=== PATIENT | female | born 1975 | race Caucasian/White ===

== ENCOUNTER → 2021-06-03 20:25 | Outpatient (CLI) | payer OTHER, SELFPAY ==
--- NOTE | 2021-06-04 12:37 | PC.NURSE ---
notified pt of positive covid result at this time
== END ==
PROVIDERS: Visit Provider Nurse Practitioner Family
DX: U07.1 COVID-19 (principal); J02.9 Acute pharyngitis, unspecified
CPT/HCPCS: C9803; U0003; U0005

== ENCOUNTER 2022-01-20 19:49 | Emergency (ER) | payer BC, SELFPAY ==
[2022-01-20 19:53] VITALS: BP 155/110; PULSE 116; RESP 20; TEMP 36.8; O2SAT 98; BMI 50.0
--- NOTE | 2022-01-20 19:58 | HMH.EDUTC ---
[facility] [place] Disposition Clinical Impression: Shingles Qualifiers: Herpes zoster complications: without complications Qualified Code(s): B02.9 - Zoster without complications Disposition: Home, Self-Care Condition on Discharge: Good Instructions: DI for Spider Bites, DI for Shingles, Doxycycline, Mupirocin, Acyclovir Referrals: Lorenzo Navarro MD [Primary Care Provider] - Time of Disposition: 20:04 Medical Decision Making - Reuben Inquiry Pt receiving controlled substance: No Reuben was queried for this patient: No Vital Signs: 01/20/22 19:53 Temperature 98.3 F Temperature Source Oral Pulse Rate [Left Brachial] 116 H Respiratory Rate 20 Blood Pressure [Left Arm] 155/110 H Blood Pressure Mean [Left Arm] 125 Blood Pressure Source [Left Arm] Automatic Cuff Blood Pressure Position [Left Arm] Sitting 02 Sat by Pulse Oximetry 98 Oxygen Delivery Method Room Air Orders (Tests/Meds): ORDERS Category Date Time Status Wound Culture and Gram Stain Stat Micro 01/20/22 19:53 Ordered Medical Decision Narrative: computer went down prior to arrival and patients prescriptions was called to [facility] Doxy 100mg BID x 7 days, Mupirocin TID x 10 days and acyclovir 800mg q5xday x 7 days Culture obtained and sent to lab [facility] [place] HPI - General Stated complaint: rash Time Seen by Provider: 01/20/22 19:58 Mode of Arrival: Ambulatory Source of Information: Patient Limitations: No Limitations Description of Symptoms (Recalled from Triage Doc. by RN): PATIENT C/O RASH TO LEFT LOWER BACK AND POSSIBLE SPIDER BITE TO LEFT COYNE X 2 DAYS, AND POSSIBLE BITE TO LEFT WRIST THAT SHE NOTICED THIS MORNING HEENT Symptoms (Recalled from RN notes): No Resp Symptoms (Recalled from RN notes): No Skin Symptoms (Recalled from RN notes): Yes MS Symptoms (Recalled from RN notes): No Functional Status (Recalled from RN notes): WNL - History of Present Illness Provider Complaint: Patient states that she noticed rash on her left side that has continued to spread and she is pretty sure it is shingles States that she also thinks she was bitten a couple times by a spider once on the left coyne and on the left wrist area States that they are red and draining so she came in - Related Data Home Medications Medication Instructions Recorded Confirmed cetirizine 10 mg capsule 10 mg PO DAILY PRN 06/03/21 06/03/21 duloxetine 60 mg capsule,delayed 60 mg PO DAILY 06/03/21 06/03/21 release insulin lispro protamine-lispro 5 unit SQ DAILY 06/03/21 06/03/21 100 unit/mL (75-25) subcutaneous pen metformin 1,000 mg tablet 1,000 mg PO DAILY 06/03/21 06/03/21 tizanidine 4 mg tablet 4 mg PO HS PRN 06/03/21 06/03/21 Previous Rx's Medication Instructions Recorded benzonatate 200 mg capsule 200 mg PO TID PRN 7 Days #21 cap 06/03/21 ondansetron 8 mg disintegrating 8 mg PO Q8H PRN #30 tab 06/03/21 tablet Allergies Allergy/AdvReac Type Severity Reaction Status Date / Time latex [LATEX] Allergy Unknown Verified 06/03/21 18:35 - Worker's Comp Is this a Worker's Comp case?: No [facility] History - Hepatitis A Screen Attestation statement:: This patient has been screened for Hepatitis A risk factors. I have reviewed the patient's past medical history: Yes Medical History: Reports:: Depression, Diabetes Mellitus Type 1, Diabetes Mellitus Type 2 Laterality Cases: Bilateral: Tonsillectomy Comment: left knee meniscectomy - Social History Smoking Status: Never smoker Alcohol Intake: never Occupational Status: employed - Psychiatric History Pschychiatric History:: Reports:: Depression Family Hx:: Non-contributory ROS Obtained: Yes All systems reviewed & no additional complaints, Yes Systems reviewed as appropriate & no additional complaints - Constitutional Constitutional: Reports system reviewed and no additional complaints, except as docu, Denies body ache, Denies chills, Denies fever(s) - ENT Ears, Nose, Mouth, and Throat: Reports syste
[2022-01-20 20:00] VITALS: BP 155/110; PULSE 116; RESP 20; TEMP 36.8; O2SAT 98
== END 2022-01-20 20:03 | disposition home or self-care (01) ==
PROVIDERS: Emergency Provider Nurse Practitioner; PCP Family Medicine
DX: B02.9 Zoster without complications (principal)
CPT/HCPCS: 87070; 87077; 87186; 87205; 99212; G0463

== ENCOUNTER 2022-12-10 14:07 | Emergency (ER) | payer BC, SELFPAY ==
[2022-12-10 14:08] VITALS: BP 154/100; PULSE 98; RESP 18; TEMP 36.7; O2SAT 99; BMI 42.9
--- NOTE | 2022-12-10 14:22 | PC.NURSE ---
DR WEAVER AT BEDSIDE
--- NOTE | 2022-12-10 14:25 | HMH.EDSKAF ---
Discharge Plan Disposition Patient Disposition: Home, Self-Care Condition: Fair Prescriptions Prescriptions: New hydroxyzine HCl 50 mg tablet 50 mg PO Q8H PRN (Reason: nausea and vomiting) Qty: 30 0RF No Action Zyrtec 10 mg capsule 10 mg PO DAILY PRN insulin lispro protamin-lispro 100 unit/mL (75-25) insulin pen 5 unit SQ DAILY metformin 1,000 mg tablet 1,000 mg PO DAILY duloxetine 60 mg capsule,delayed release(DR/EC) 60 mg PO DAILY tizanidine 4 mg tablet 4 mg PO HS PRN benzonatate 200 mg capsule 200 mg PO TID PRN (Reason: cough) 7 Days Qty: 21 0RF ondansetron 8 mg tablet,disintegrating 8 mg PO Q8H PRN (Reason: nausea ) Qty: 30 0RF Referrals Follow up/Referrals: Chirag Kirkpatrick [Primary Care Provider] - See instructions Activity Restrictions/Add. Instructions Additional Instructions/Restrictions: Follow-up with your primary care doctor in about 2 to 3 days if your symptoms do not improve. I recommend that you follow-up with a guide dog trainer and/or shirt hemmer for further work-up. I suspect that your symptoms are due to a systemic allergic reaction to something you have taken by mouth. Please return to the emergency department immediately if you feel worse in any way. Clinical Impressions Clinical Impression: Allergic reaction Instructions Patient Instructions: DI for General Allergic Reactions Discharge ED Provider: Darryl Amador Skin/Abscess/FB HPI General Chief complaint: Skin/Abscess/Foreign Body Stated complaint: Fever, rash all over body, nausea Time Seen by Provider: 12/10/22 14:20 History of Present Illness HPI narrative: The patient presents to the emergency department complaining of severe pruritus and burning of both palms and feet. This began yesterday. 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 She states that there has been no change in gloves at work. She also denies any recent tick bites. She denies having had a fever recently. She denies any rashes other than in her hands. Related Data Home Medications Medication Instructions Recorded Confirmed cetirizine 10 mg capsule (Zyrtec) 10 mg PO DAILY PRN 06/03/21 06/03/21 duloxetine 60 mg capsule,delayed 60 mg PO DAILY 06/03/21 06/03/21 release insulin lispro protamine-lispro 5 unit SQ DAILY 06/03/21 06/03/21 100 unit/mL (75-25) subcutaneous pen metformin 1,000 mg tablet 1,000 mg PO DAILY 06/03/21 06/03/21 tizanidine 4 mg tablet 4 mg PO HS PRN 06/03/21 06/03/21 Previous Rx's Medication Instructions Recorded benzonatate 200 mg capsule 200 mg PO TID PRN cough 7 days #21 06/03/21 caps ondansetron 8 mg disintegrating 8 mg PO Q8H PRN nausea #30 tabs 06/03/21 tablet hydroxyzine HCl 50 mg tablet 50 mg PO Q8H PRN nausea and 12/10/22 vomiting #30 tabs Allergies Allergy/AdvReac Type Severity Reaction Status Date / Time latex [LATEX] Allergy Unknown Verified 06/03/21 18:35 [facility] Disclaimer: The information contained in this section may have been updated after the patient was seen, as this information can be updated by other users. Social History Smoking Status: Never smoker alcohol intake: never current occupational status: employed Travel in the last 8 weeks: None ROS Obtained: Yes All systems reviewed & no additional complaints except as documented Physical Exam General General appearance: alert Head Head exam: atraumatic Eye Eye exam: Present normal appearance ENT ENT exam: Present normal exam Neck Neck exam: Present normal inspection and full ROM; Absent tenderness or meningismus Chest Chest inspection: Present normal inspection and symmetric chest wall rise; Absent tenderness Respiratory Respiratory exam: Present normal lung sounds bilaterally; Absent respiratory distress or accessory muscle use Cardiovascular Cardiovascular exam: Present regular rate, normal rhythm and normal heart sounds Abdominal
[2022-12-10 14:31] VITALS: BP 157/79; PULSE 96; RESP 18; O2SAT 96
[2022-12-10 14:55] LABS: Basophils % 0.4 % (0.1-2.0); Eosinophils # 0.3 K/mm3 (0.0-0.4); Eosinophils % 3.4 % (0.1-12.0); Hematocrit 44.3 % (37.0-47.0); Hemoglobin 14.5 g/dL (12.2-16.2); Lymphocytes # 1.6 K/mm3 (0.7-4.5); Lymphocytes % 19.9 % (10-50); Mean Corpuscular HGB Conc 32.8 g/dL (31.8-35.4); Mean Corpuscular Hemoglobin 26.1 pg (27.0-31.2); Mean Corpuscular Volume 79.6 fl (81-99); Mean Platelet Volume 8.2 fl (7.4-10.4); Monocytes # 0.4 K/mm3 (0.1-1.0); Monocytes % 4.5 % (1.7-9.3); Neutrophils # 5.7 K/mm3 (1.8-7.8); Neutrophils % 71.8 % (37.0-80.0); Platelet Count 289 K/mm3 (142-424); Red Blood Count 5.57 M/mm3 (4.20-5.40); White Blood Count 7.9 K/mm3 (4.8-10.8)
[2022-12-10 14:59] LABS: Chloride 97 mmol/L (98-107); Potassium 4.2 mmoL/L (3.5-5.1); Sodium 136 mmol/L (136-145)
[2022-12-10 15:00] VITALS: BP 122/63; PULSE 95; RESP 18; O2SAT 97
[2022-12-10 15:01] LABS: Alanine Aminotransferase 33 U/L (12-78); Aspartate Amino Transferase 38 U/L (14-36); Blood Urea Nitrogen 8 mg/dl (7-17); Creatinine Clearance Estimated 119 mL/min (50-200); Estimated Glomerular Filt Rate 132 ml/min (>60); GFR (African American) 159 ML/MIN (>60)
[2022-12-10 15:02] LABS: Albumin Level 4.1 g/dl (3.5-5.0); Albumin/Globulin Ratio 1.1 (1.1-1.8); Alkaline Phosphatase 88 U/L (38-126); Anion Gap 13.2 mEq/L (5-15); Bilirubin,Total 0.2 mg/dl (0.2-1.3); Calcium 9.6 mg/dl (8.4-10.2); Carbon Dioxide 30 mmol/L (22.0-30.0); Globulin 3.6 g/dL (1.3-3.2); Glucose 151 mg/dl (74-100); Total Protein,Serum 7.7 g/dl (6.3-8.2)
--- NOTE | 2022-12-10 15:05 | PC.NURSE ---
PT MEDICATED PER EMAR, NO NEEDS AT THIS TIME
--- NOTE | 2022-12-10 15:23 | PC.NURSE ---
PATIENT GIVEN ICE WATER, SPOUSE AT BEDSIDE, NO OTHER NEEDS AT THIS TIME
--- NOTE | 2022-12-10 15:25 | PC.NURSE ---
PT REPORTS FEELING SOME IMPROVEMENT NO BURNING SENSATION AT THIS TIME
[2022-12-10 15:30] VITALS: BP 129/64; PULSE 87; RESP 18; O2SAT 96
--- NOTE | 2022-12-10 15:40 | PC.NURSE ---
rounded on pt, no needs at this time
--- NOTE | 2022-12-10 16:16 | PC.NURSE ---
DR WEAVER AT BEDSIDE TO REEVALUATE PT
[2022-12-10 16:30] VITALS: BP 118/61; PULSE 89; RESP 18; TEMP 36.8; O2SAT 98
== END 2022-12-10 16:30 | disposition home or self-care (01) ==
PROVIDERS: Emergency Provider Emergency Medicine; PCP Internal Medicine
DX: T78.40XA Allergy, unspecified, initial encounter (principal); L29.9 Pruritus, unspecified
CPT/HCPCS: 80053; 85025; 96372; 96374; 99284; J2405

== ENCOUNTER 2025-05-26 19:14 | Emergency (ER) | payer OTHER, SELFPAY ==
--- OUTSIDE RECORDS SUMMARY | 2025-03-28 13:15 | XMS_ITS | Encounter Summary ---
[facility] Address [address] [place] [address] Care Team Providers Care Alcoholism Worker Name Role Phone Nancy Mendez Primary Care Provider [phone] Reason for Visit * Reason Comments Fibromyalgia Encounter Details Date Type Department Care Team (Late st Contact Info) Description 03/28/2025 2:15 PM EDT Office Visit [facility] RHEUMATOLOGY 330 [facility] [address] [place] [address] Tierney Webster APRN 330 [facility] [address] [place] [address] Fibromyalgia (Primary Dx); High risk medication use; Arthralgia of multiple sites; Hidradenitis suppurativa; Rheumatoid factor positive Social History Tobacco Use Types Packs/Day Years Used Date Smoking Tobacco: Never Passive Smoke Exposure: Past Smokeless Tobacco: Never Tobacco Cessation:Counseling Given: Not Answered Alcohol Use Standard Drinks/Week Comments Never 0 (1 standard drink = 0.6 oz pur e alcohol) Comments Unknown Sex and Gender Information Value Date Recorded Sex Assigned at Female 03/28/2025 12:00 PM EDT Legal Sex Female 11:01 AM EDT Gender Identity Not on file Sexual Orientation Not on file documented as of this encounter Last Filed Vital Signs Vital Sign Reading Time Taken Comments Blood Pressure 130/78 03/28/2025 2:12 PM EDT Pulse 99 03/28/2025 2:12 PM EDT Temperature 36.5 C (97.7 F) 03/28/2025 2:12 PM EDT Respiratory Rate - - Oxygen Saturation - - Inhaled Oxygen Concentration - - Weight 117 kg (258 lb) 03/28/2025 2:12 PM EDT Height 162.6 cm (5' 4 ) 03/28/2025 2:12 PM EDT Body Mass Index 44.29 03/28/2025 2:12 PM EDT documented in this encounter Progress Notes * Tierney Webster APRN - 03/28/2025 2:15 PM EDTAssociated Problem(s): 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 Improved on medication Doing well on duloxetine, pregabalin and tizanidine. Refilled Medications are well tolerated and effective for her chronic pain -Labs ordered for monitoring as below along with urine drug screen on controlled medication She is feeling worse snice Monjauro was stopped and Ozempic was started. She has had uncontrolled glucose and this has also caused more pain. We have encouraged regular low impact aerobic exercise up to 30 minutes per day. If this is unattainable, recommend a graded exercise program starting with 5 minutes of dedicated cardiovascular exercise daily, increasing by 1 minute daily until goal of 30 minutes daily is reached. We have recommended conservative measures to improve sleep Will send in flonase for her allergies. They are worse and PCP has not filled this. Consider referral to sleep medicine for HARLAN screening We recommend avoiding narcotics studies have shown that narcotics can worsen fibromyalgia pain. Counseled on alternative therapies that can help with pain including massage therapy, aquatic therapy, physical therapy, acupuncture, chiropractics, and psychology evaluation Follow-up 6 months * Tierney Webster APRN - 03/28/2025 2:15 PM EDTAssociated Problem(s): High risk medication use Pregabalin Well tolerated and effective No sign of abuse or diversion Discussed risks and benefits of Lyrica including sedation, allergic reaction, withdrawal. Reuben reviewed and appropriate Intermittent urine drug screen for monitoring Controlled medication agreement reviewed and signed 04/06/2024 * Tierney Webster APRN - 03/28/2025 2:15 PM EDTAssociated Problem(s): Arthralgia of multiple sites RF and ANA9 negative 02/2022. No swollen joints/peripheral synovitis to suggest an inflammatory arthritis. Likely fibromyalgia and some OA causing widespread musculoskeletal pain * Tierney Webster APRN - 03/28/2025 2:15 PM EDTAssociated Problem(s): Hidradenitis suppurativa [facility] Prior Humira per Dermatology started July 2019- lost efficacy Prior doxycycline, minocycline, spironolactone, dapsone. Intermittent HS lesions groin. These come and go Has failed doxycycline historically She tried Humira for HS but stopped due to having respiratory side effects with Humira. We tried dapsone for her previously but she reports it made her feel poorly so she stopped this after 2 months Recommend continue follow up with dermatology * Tierney Webster APRN - 03/28/2025 2:15 PM EDTAssociated Problem(s): Rheumatoid factor positive Low titer positive rheumatoid factor 22, negative JD Negative hepatitis panel with Dermatology 02/2022 repeat RF negative, ANA9 negative. Suspect false-positive low titer rheumatoid factor. Repeat rheumatoid factor negative She does not have peripheral joint synovitis or progressive joint deformities. She has had chronic widespread musculoskeletal pain ongoing for years, probably from fibromyalgia and some OA * Tierney Webster APRN - 03/28/2025 2:15 PM EDT Images from the original note were not included. Office Follow Up Date: 03/28/2025 Patient Name: Polly Bullard Date of : 1975 Referring Physician: No ref. provider found Chief Complaint: Chief Complaint Patient presents with Fibromyalgia History of Present Illness: Polly Bullard is a 49 y.o. female here today for follow up on fibromyalgiaand weakly positive rheumatoid factor thought to be false- positive. Repeat RF 02/2022 was negative. Overall she feels her musculoskeletal pain is improved on pregabalin and duloxetine. No longer on celecoxib Still some achy joints and muscles. No swollen joints today. JD comprehensive panel 02/2022 was negative. She has intermittent trouble with hidradenitis lesions particularly in her groin. Follows with Dermatology She discontinued Humira as it stopped working for the hidradenitis and she had some respiratory issues when on it. 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 We prescribed her Dapsone at her visit 02/2022. She took this for 2 months, but it made her feel poorly so she is no longer taking this. Overall she is doing reasonably well recently. Pregabalin at night is helpful. Still some difficulty with sleep and muscle pain at night. Tizanidine is also helpful at night Interim 03/28/2025: Today patient reports feeling worse. She believes this is due to uncontrolled blood sugars with a medicine change. Her GLP 1 was changed. She rates her pain a global score 3/10. She has 1 hour of morning stiffness. She would like refills of pregabalin and tizanidine. We last saw her May 03, 2024. Subjective Review of Systems: Review of Systems Constitutional: Positive for appetite change and fatigue. HENT: Positive for postnasal drip and tinnitus. Musculoskeletal: Positive for arthralgias, back pain and myalgias. Neurological: Positive for tremors. Psychiatric/Behavioral: Positive for depressed mood. All other systems reviewed and are negative. Medications: Current Outpatient Medications: buPROPion XL (WELLBUTRIN XL) 150 MG 24 hr tablet, Take 1 tablet by mouth Every Morning., Disp: , Rfl: DULoxetine (CYMBALTA) 60 MG capsule, Take 1 capsule by mouth Daily., Disp: 90 capsule, Rfl: 2 HumaLOG Mix 75/25 KwikPen (75-25) 100 UNIT/ML suspension pen-injector pen, INJCET 87UNITS EVERY DAY, Disp: , Rfl: levocetirizine (XYZAL) 5 MG tablet, Take 1 tablet by mouth every night at bedtime., Disp: , Rfl: losartan (COZAAR) 25 MG tablet, Take 1 tablet by mouth Daily., Disp: , Rfl: Ozempic, 2 MG/DOSE, 8 MG/3ML solution pen-injector, INJECT 2 MG UNDER THE SKIN ONCE WEEKLY ON THE SAME DAY EACH WEEK, Disp: , Rfl: pregabalin (LYRICA) 150 MG capsule, Take 1 capsule by mouth every night at bedtime., Disp: 90 capsule, Rfl: 1 rosuvastatin (CRESTOR) 5 MG tablet, , Disp: , Rfl: tiZANidine (ZANAFLEX) 4 MG tablet, Take 1 tablet by mouth Every 8 (Eight) Hours As Needed for Muscle Spasms., Disp: 90 tablet, Rfl: 5 fluticasone (FLONASE) 50 MCG/ACT nasal spray, Administer 2 sprays into the nostril(s) as directed by provider Daily., Disp: 16 g, Rfl: 3 Allergies: Allergies Allergen Reactions Latex Unknown - Low Severity I have reviewed and updated the patient's chief complaint, history of present illness, review of systems, past medical history, surgical history, family history, social history, medications and allergy list as appropriate. Objective Vital Signs: Vitals: 03/28/25 1412 BP: 130/78 BP Location: Left arm Patient Position: Sitting Cuff Size: Adult Pulse: 99 Temp: 97.7 ??F (36.5 ??C) Weight: 117 kg (258 lb) Height: 162.6 cm (64 ) PainSc: 3 PainLoc: Generalized Body mass index is 44.29 kg/m??. Physical Exam: Physical Exam MUSCULOSKELETAL: No peripheral synovitis. No dactylitis. No pitting of the nails. She has scattered myofascial tenderness above and below the waist. Complete joint exam was performed including the MCPs, PIPs, DIPs of the hands, wrists, elbows, shoulders, hips, knees and ankles. No soft tissue swelling or tenderness is present except as above. General: The patient is well-developed and well nourished. Cooperative, alert and oriented. Affect is normal. Hydration appears normal. HEENT: Normocephalic and atraumatic. No notable alopecia. Lids and conjunctiva are normal. Pupils are equal and sclera are clear. Oropharynx is clear NECK neck is supple without adenopathy, masses or thyromegaly. CARDIOVASCULAR: Regular rate and rhythm. No murmurs, rubs or gallops LUNGS: Effort is normal. Lungs are clear bilateral ABDOMEN: Not examined EXTREMITIES: Peripheral pulses are intact. No clubbing. SKIN: No rashes. No subcutaneous nodules. No digital ulcers. No sclerodactyly. Positive scarring axilla from prior hidradenitis NEUROLOGIC: Gait is normal. Strength testing is normal. No focal neurologic deficits Results Review: Labs: Lab Results Component Value Date GLUCOSE 127 (H) 04/06/2024 BUN 12 04/06/2024 CREATININE 0.78 04/06/2024 EGFR 92.7 04/06/2024 BCR 15.4 04/06/2024 K 4.1 04/06/2024 CO2 27.0 04/06/2024 CALCIUM 10.0 04/06/2024 ALBUMIN 4.2 04/06/2024 BILITOT 0.3 04/06/2024 AST 59 (H) 04/06/2024 ALT 63 (H) 04/06/2024 Lab Results Component Value Date WBC 15.02 (H) 04/06/2024 HGB 15.2 04/06/2024 HCT 47.8 (H) 04/06/2024 MCV 86.8 04/06/2024 PLT 410 04/06/2024 Lab Results Component Value Date SEDRATE 51 (H) 04/06/2024 No results found for: CRP No results found for: QUANTIFERO , QUANTITB1 , QUANTITB2 , QUANTIFERN , QUANTIFERM , QUANTITBGLDP No results found for: RF No results found for: HEPBSAG , HEPAIGM , HEPBIGMCORE , HEPCVIRUSABY Procedures Assessment / Plan Assessment & Plan 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 Improved on medication Doing well on duloxetine, pregabalin and tizanidine. Refilled Medications are well tolerated and effective for her chronic pain -Labs ordered for monitoring as below along with urine drug screen on controlled medication She is feeling worse snice Monjauro was stopped and Ozempic was started. She has had uncontrolled glucose and this has also caused more pain. We have encouraged regular low impact aerobic exercise up to 30 minutes per day. If this is unattainable, recommend a graded exercise program starting with 5 minutes of dedicated cardiovascular exercise daily, increasing by 1 minute daily until goal of 30 minutes daily is reached. We have recommended conservative measures to improve sleep Will send in flonase for her allergies. They are worse and PCP has not filled this. Consider referral to sleep medicine for HARLAN screening We recommend avoiding narcotics studies have shown that narcotics can worsen fibromyalgia pain. Counseled on alternative therapies that can help with pain including massage therapy, aquatic therapy, physical therapy, acupuncture, chiropractics, and psychology evaluation Follow-up 6 months High risk medication use Pregabalin Well tolerated and effective No sign of abuse or diversion Discussed risks and benefits of Lyrica including sedation, allergic reaction, withdrawal. Reuben reviewed and appropriate Intermittent urine drug screen for monitoring Controlled medication agreement reviewed and signed 04/06/2024 Arthralgia of multiple sites RF and ANA9 negative 02/2022. No swollen joints/peripheral synovitis to suggest an inflammatory arthritis. Likely fibromyalgia and some OA causing widespread musculoskeletal pain Hidradenitis suppurativa [facility] Prior Humira per Dermatology started July 2019- lost efficacy Prior doxycycline, minocycline, spironolactone, dapsone. Intermittent HS lesions groin. These come and go Has failed doxycycline historically She tried Humira for HS but stopped due to having respiratory side effects with Humira. We tried dapsone for her previously but she reports it made her feel poorly so she stopped this after 2 months Recommend continue follow up with dermatology Rheumatoid factor positive Low titer positive rheumatoid factor 22, negative JD Negative hepatitis panel with Dermatology 02/2022 repeat RF negative, ANA9 negative. Suspect false-positive low titer rheumatoid factor. Repeat rheumatoid factor negative She does not have peripheral joint synovitis or progressive joint deformities. She has had chronic widespread musculoskeletal pain ongoing for years, probably from fibromyalgia and some OA Orders Placed This Encounter Procedures ToxAssure Flex 22, Urine - Urine, Random Void Discussed plan of care in detail with the patient today. Patient verbalized understanding and agrees. I confirm accuracy of unchanged data/findings which have been carried forward from previous visit. I have updated appropriately those that have changed. New Medications Ordered This Visit Medications tiZANidine (ZANAFLEX) 4 MG tablet Sig: Take 1 tablet by mouth Every 8 (Eight) Hours As Needed for Muscle Spasms. Dispense: 90 tablet Refill: 5 pregabalin (LYRICA) 150 MG capsule Sig: Take 1 capsule by mouth every night at bedtime. Dispense: 90 capsule Refill: 1 fluticasone (FLONASE) 50 MCG/ACT nasal spray Sig: Administer 2 sprays into the nostril(s) as directed by provider Daily. 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 Tireney Webster APRN [facility] documented in this encounter Plan of Treatment Upcoming Encounters Date Type Department Care Team (Late st Contact Info) Description 09/25/2025 2:00 PM EDT Office Visit [facility] RHEUMATOLOGY [address] [address] Tierney Webster APRN [address] [address] Scheduled Orders Name Type Priority Associated Diagnoses Orde r Schedule ToxAssure Flex 22, Urine - Urine, Random Void Lab Routine High risk medication use Expected: 09/24/2025 (Approximate), Expires: 06/27/2026 documented as of this encounter Visit Diagnoses Diagnosis Fibromyalgia- Primary Unspecified myalgia and myositis High risk medication use Arthralgia of multiple sites Hidradenitis suppurativa Hidradenitis Rheumatoid factor positive Other and unspecified nonspecific immunological findings documented in this encounter Care Teams Alcoholism Worker Relationship Specialty Start Date End Date Nancy Mendez PA [address] [place] [place], [place] [id number] PCP - 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
[2025-05-26] VITALS (10 sets, daily range): BP systolic 140–187; BP diastolic 55–99; PULSE 71–99; RESP 18–20; TEMP 36.5–36.8; O2SAT 95–99; BMI 44.1
--- NOTE | 2025-05-26 19:29 | CT_ITS ---
PROCEDURE INFORMATION: Exam: CT Abdomen And Pelvis With Contrast Exam date and time: 05/26/2025 8:22 PM Age: 49 years old Clinical indication: Abdominal pain; Additional info: Left flank pain, HX of stone TECHNIQUE: Imaging protocol: Computed tomography of the abdomen and pelvis with contrast. Radiation optimization: All CT scans at this facility use at least one of these dose optimization techniques: automated exposure control; mA and/or kV adjustment per patient size (includes targeted exams where dose is matched to clinical indication); or iterative reconstruction. Contrast material: ISOVUE; Contrast volume: 75 ml; Contrast route: IV; COMPARISON: No relevant prior studies available. FINDINGS: Lungs: Lung bases are clear. Esophagus: Circumferential distal esophageal wall thickening. Diaphragm: Moderate hiatal hernia. Liver: Liver is enlarged measuring 18 cm. No liver lesions. Gallbladder and biliary ducts: Cholecystectomy. There is no evidence of biliary ductal dilation. Pancreas: The pancreas is normal. Spleen: The spleen demonstrates punctate calcifications, consistent with remote granulomatous organism exposure. No splenic lesions. Adrenal glands: Adrenal glands are normal in size and morphology. No masses or suspicious nodules. Kidneys and ureters: The kidneys are normal. No hydroureter. Stomach and bowel: Mild constipation. No bowel obstruction or significant bowel wall thickening. Stomach is decompressed and difficult to evaluate. Duodenum is unremarkable. Appendix: A normal appendix is identified. Intraperitoneal space: There is no evidence of free intraperitoneal or pelvic fluid. No intraperitoneal fluid collections. There is no free intraperitoneal air. Vasculature: Mild atherosclerotic calcification of the arterial vasculature. No aortic aneurysm. Portal venous system is patent. Lymph nodes: No concerning adenopathy. Urinary bladder: No urinary bladder wall thickening, large masses, or stones. Reproductive: IUD is present. Reproductive organs are unremarkable as visualized. Bones/joints: Moderate multilevel degenerative changes of the spine. No acute skeletal abnormality or aggressive osseous lesion. Soft tissues: Fat containing umbilical hernia. No acute soft tissue findings. IMPRESSION: 1. Circumferential distal esophageal wall thickening. Could be related to mild esophagitis or sequela of gastroesophageal reflux disease. 2. No nephrolithiasis or acute obstructive uropathy.
--- OUTSIDE RECORDS SUMMARY | 2025-05-26 19:29 | XMS_ITS | Encounter Summary ---
[facility] Address [address] [place] [address] Care Team Providers Care Division Sergeant Name Role Phone Nancy Mendez Primary Care Provider [phone] Encounter Details Date Type Department Care Team (Late st Contact Info) Description 04/02/2025 Results Follow-Up [facility] RHEUMATOLOGY [address] [address] Tierney Webster APRN [address] [address] Social History Tobacco Use Types Packs/Day Years Used Date Smoking Tobacco: Never Passive Smoke Exposure: Past Smokeless Tobacco: Never Alcohol Use Standard Drinks/Week Comments Never 0 (1 standard drink = 0.6 oz pur e alcohol) Comments Unknown Sex and Gender Information Value Date Recorded Sex Assigned at Female 03/28/2025 12:00 PM EDT Legal Sex Female 11:01 AM EDT Gender Identity Not on file Sexual Orientation Not on file documented as of this encounter Plan of Treatment Upcoming Encounters Date Type Department Care Team (Late st Contact Info) Description 09/25/2025 2:00 PM EDT Office Visit [facility] RHEUMATOLOGY 330 [facility] [address] [place] [address] Tierney Webster APRN [address] [phone] documented as of this encounter Visit Diagnoses Not on filedocumented in this encounter Care Teams Division Sergeant Relationship Specialty Start Date End Date Nancy Mendez PA [address] [place] [address] PCP - General Physician Garland Maker 03/29/24 documented as of this encounter
--- OUTSIDE RECORDS SUMMARY | 2025-05-26 19:29 | XMS_ITS | Clinical Summary ---
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 4 Active HumaLOG Mix 75/25 KwikPen (75-25) 100 UNIT/ML suspension pen-injector pen INJCET 87UNITS EVERY DAY Active buPROPion XL (WELLBUTRIN XL) 150 MG 24 hr tablet Take 1 tablet by mouth Every Morning. 4 Active DULoxetine (CYMBALTA) 60 MG capsuleIndicati ons:Fibromyalgi a,High risk medication use Take 1 capsule by mouth Daily. 90 capsule 2 4 Active losartan (COZAAR) 25 MG tablet Take 1 tablet by mouth Daily. 5 Active rosuvastatin (CRESTOR) 5 MG tablet 5 Active Ozempic, 2 MG/DOSE, 8 MG/3ML solution pen-injector INJECT 2 MG UNDER THE SKIN ONCE WEEKLY ON THE SAME DAY EACH WEEK 5 Active tiZANidine (ZANAFLEX) 4 MG tabletIndicatio ns:Fibromyalgia ,High risk medication use Take 1 tablet by mouth Every 8 (Eight) Hours As Needed for Muscle Spasms. 90 tablet 5 5 Active pregabalin (LYRICA) 150 MG capsuleIndicati ons:Fibromyalgi a,High risk medication use Take 1 capsule by mouth every night at bedtime. 90 capsule 1 5 Active fluticasone (FLONASE) 50 MCG/ACT nasal spray Administer 2 sprays into the nostril(s) as directed by provider Daily. 16 g 3 5 Active Active Problems Problem Noted Date Diagnosed Date High risk medication use 04/06/2024 Assessment & Plan (03/26/2025 12:21 PM EDT): Pregabalin Well tolerated and effective No sign of abuse or diversion Discussed risks and benefits of Lyrica including sedation, allergic reaction, withdrawal. Reuben reviewed and appropriate Intermittent urine drug screen for monitoring Controlled medication agreement reviewed and signed 04/06/2024 Assessment & Plan (04/06/2024 12:21 PM EDT): Pregabalin Well tolerated and effective No sign of abuse or diversion Discussed risks and benefits of Lyrica including sedation, allergic reaction, withdrawal. 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 Improved on medication Doing well on duloxetine, pregabalin and tizanidine. Refilled Medications are well tolerated and effective for her chronic pain -Labs ordered for monitoring as below along with urine drug screen on controlled medication We have encouraged regular low impact aerobic exercise up to 30 minutes per day. If this is unattainable, recommend a graded exercise program starting with 5 minutes of dedicated cardiovascular exercise daily, increasing by 1 minute daily until goal of 30 minutes daily is reached. We have recommended conservative measures to improve sleep Consider referral to sleep medicine for HARLAN screening We recommend avoiding narcotics studies have shown that narcotics can worsen fibromyalgia pain. Counseled on alternative therapies that can help with pain including massage therapy, aquatic therapy, physical therapy, acupuncture, chiropractics, and psychology evaluation Follow-up 6 months Arthralgia of multiple sites 04/03/2024 Assessment & Plan (03/26/2025 12:21 PM EDT): RF and ANA9 negative 02/2022. No swollen joints/peripheral synovitis to suggest an inflammatory arthritis. Likely fibromyalgia and some OA causing widespread musculoskeletal pain Assessment & Plan (04/06/2024 12:21 PM EDT): RF and ANA9 negative 02/2022. No swollen joints/peripheral synovitis to suggest an inflammatory arthritis. Likely fibromyalgia and some OA causing widespread musculoskeletal pain Encounter for medication monitoring 04/03/2024 Hidradenitis suppurativa 04/03/2024 Assessment & Plan (03/26/2025 12:21 PM EDT): Dermatology associates [facility] -- [facility] [place] Prior Humira per Dermatology started July 2019- [...] months Recommend continue follow up with dermatology Assessment & Plan (04/06/2024 12:21 PM EDT): Dermatology associates [facility] -- [facility] [place] Prior Humira per Dermatology started July 2019- [...] follow up with dermatology Rheumatoid factor positive 04/03/2024 Assessment & Plan (03/26/2025 12:21 PM EDT): Low titer positive rheumatoid factor 22, negative JD Negative hepatitis panel with Dermatology 02/2022 repeat RF negative, ANA9 negative. Suspect false-positive low titer rheumatoid factor. Repeat rheumatoid factor negative She does not have peripheral joint synovitis or progressive joint deformities. She has had chronic widespread musculoskeletal pain ongoing for years, probably from fibromyalgia and some OA Assessment & Plan (04/06/2024 12:21 PM EDT): Low titer positive rheumatoid factor 22, negative JD Negative hepatitis panel with Dermatology 02/2022 repeat RF negative, ANA9 negative. Suspect false-positive low titer rheumatoid factor. Repeat rheumatoid factor negative She does not have peripheral joint synovitis or progressive joint deformities. She has had chronic widespread musculoskeletal pain ongoing for years, probably from fibromyalgia and some OA Encounters Date Type Department Care Team Description 04/02/2025 Results Follow-Up [facility] [address] [address] Whit Webster APRN 03/28/2025 2:15 PM EDT Office Visit [facility] [address] [place] [phone] Whit Webster APRN Fibromyalgia (Primary Dx); High risk medication use; Arthralgia of multiple sites; Hidradenitis suppurativa; Rheumatoid factor positive 03/28/2025 Travel from Last 3 Months Immunizations Immunization Administration Dates Next Due Influenza, Unspecified 04/01/2020 Family History Medical History Relation Name Comments Asthma Brother Asthma Father Back lung Father Lung cancer Mother Asthma Son Relation Name Status Comments Brother Father Mother Son Social History Tobacco Use Types Packs/Day Years [...] on file Sexual Orientation Not on file Last Filed Vital Signs Vital Sign Reading [...] Mass Index 44.29 03/28/2025 2:12 PM EDT Plan of Treatment Upcoming Encounters Date Type Department Care Team (Late st Contact Info) Description 09/25/2025 2:00 PM EDT Office Visit [facility] [address] [place] [phone] Tierney Webster APRN [address] [address] Health Maintenance Due Date Last Done Comments Annual Gynecologic Pelvic and Breast Exam 1973 TDAP/TD VACCINES (1 - Tdap) 1992 PAP SMEAR 1994 MAMMOGRAM 2013 COLOGUARD 2018 COLON CANCER SCREENING 5 YEAR SIGMOIDOSCOPY 2018 COLONOSCOPY 2018 [address] CANCER SCREENING 2018 CT COLONOGRAPHY 2018 FECAL OCCULT BLOOD TEST 2018 FIT Testing (1 year) 2018 Pneumococcal Vaccine 50+ (1 of 1 - PCV) 12/24/2023 ZOSTER VACCINE (1 of 2) 12/24/2023 ANNUAL PHYSICAL 03/21/2024 INFLUENZA VACCINE 02/02/2025 04/01/2020 HEPATITIS C SCREENING Completed 03/21/2024 Procedures Procedure Name Priority Date/Time Associated Diagnosis Comments ACETAMINOPHEN, MS, UR RFX Routine 03/28/2025 3:05 PM EDT TOXASSURE FLEX 22, URINE Routine 03/28/2025 3:05 PM EDT HEPATITIS PANEL, ACUTE Routine 03/21/2024 9:06 AM EDT from Last 3 Months or Most Recently Relevant to Health Maintenance Results * Acetaminophen, MS, Ur RFX - (03/28/2025 3:05 PM EDT) Acetaminophen Confirmation +POSITIVE+ [facility] Acetaminophen, Ur PRESENT [facility] 03/28/2025 3:05 PM EDT 03/28/2025 Narrative [facility] (AM[facility]AT[facility]) - 04/02/2025 2:07 PM EDT Performed at: 01 - [facility] [address] [place] [id number] Speech Language Specialist: Polly Connell [facility], Phone: [phone] Patient Fasting: N us Tierney Webster SHIP ERECTOR URINE ORDERABLES Final Result [facility] ([facility]) [address] [place] [address], [facility] [address] [place] [address], * ToxAssure Flex 22, Urine - (03/28/2025 3:05 PM EDT) Report Summary FINAL [facility] Comment: Acetaminophen, MS, Ur RFX Tox[facility] Flex 22, Urine Test Result Flag Units Drug Present Acetaminophen PRESENT Test Result Flag Units Ref Range Creatinine 87 mg/dL >=20 Declared Medications: Medication list was not provided. For clinical consultation, please call . CREATININE 87 >=20 mg/dL [facility] Comment:REFERENCE RANGE: Ref Range>=20 Amphetamines, IA Negative CUTOFF: 300 ng/mL [facility] Benzodiazepines Negative [facility] Diazepam Urine, Qualitative Not Detected ng/mg creat [facility] Desmethyldiazepam Not Detected ng/mg creat [facility] Oxazepam, urine Not Detected ng/mg creat [facility] Temazepam Not Detected ng/mg creat [facility] Comment: Expected metabolism of benzodiazepine class drugs: Parent Drug Detected Metabolites Diazepam: Desmethyldiazepam, Temazepam, Oxazepam Chlordiazepoxide: Desmethyldiazepam, Oxazepam Clorazepate: Desmethyldiazepam, Oxazepam Halazepam: Desmethyldiazepam, Oxazepam Temazepam: Oxazepam Oxazepam: None Alprazolam Urine, Conf Not Detected ng/mg creat [facility] Alpha-hydroxyalprazolam, Urine Not Detected ng/mg creat [facility] Desalkylflurazepam, Urine Not Detected ng/mg creat [facility] Lorazepam, Urine Not Detected ng/mg creat [facility] Alpha-hydroxytriazolam, Urine Not Detected ng/mg creat [facility] Clonazepam Not Detected ng/mg creat [facility] 7- AMINOCLONAZEPAM Not Detected ng/mg creat [facility] Midazolam, Urine Not Detected ng/mg creat [facility] Alpha-hydroxymidazolam, Urine Not Detected ng/mg creat [facility] Flunitrazepam Not Detected ng/mg creat [facility] DESMETHYLFLUNITRAZEPAM Not Detected ng/mg creat [facility] COCAINE / METABOLITE, IA Negative CUTOFF: 150 ng/mL [facility] Ethyl Alcohol, Enz Negative CUTOFF: 0.020 g/dL [facility] Ethanol and Ethanol Biomarkers Negative CUTOFF: 500 ng/mL [facility] 6-Acetylmorphine IA Negative CUTOFF: 10 ng/mL [facility] Opiate Class IA Negative CUTOFF: 100 ng/mL [facility] Oxycodone Class IA Negative CUTOFF: 100 ng/mL [facility] METHADONE, IA Negative CUTOFF: 100 ng/mL [facility] Methadone MTB IA Negative CUTOFF: 100 ng/mL [facility] Buprenorphine, Urine Negative [facility] B Buprenorphine, Urine Not Detected ng/mg creat [facility] Norbuprenorphine Not Detected ng/mg creat [facility] Fentanyl Negative [facility] Fentanyl, Urine Not Detected ng/mg creat [facility] Norfentanyl Urine Not Detected ng/mg creat [facility] Tapentadol, IA Negative CUTOFF: 200 ng/mL [facility] MEPERIDINE, IA Negative CUTOFF: 200 ng/mL [facility] PROPOXYPHENE, IA Negative CUTOFF: 300 ng/mL [facility] TRAMADOL, IA Negative CUTOFF: 200 ng/mL [facility] Barbiturates, IA Negative CUTOFF: 200 ng/mL [facility] Other Hallucinogens Ur Negative [facility] Ketamine Not Detected [facility] Norketamine Not Detected [facility] PHENCYCLIDINE, IA Negative CUTOFF: 25 ng/mL [facility] Gabapentin, IA Negative CUTOFF: 1.0 ug/mL [facility] Carisoprodol, IA Negative CUTOFF: 100 ng/mL [facility] SEDATIVES/HYPNOTICS Negative [facility] Zolpidem(Ambien) Urine Not Detected [facility] Zolpidem Acid Not Detected [facility] Eszopiclone/Zopiclone Not Detected [facility] Amino Chloropyridine Not Detected [facility] Zaleplon, Ur Not Detected [facility] Comment: Expected metabolism of Sedatives/Hypnotics: Parent Drug Detected Metabolites Zolpidem: Zolpidem Acid Zopiclone/Eszopiclone: Amino Chloropyridine Zaleplon: None Acetaminophen, IA Comment CUTOFF: 5.0 ug/mL [facility] Comment:Further testing maxwell cated Miscellaneous, Ur Negative [facility] DEXTROMETHORPHAN Not Detected [facility] Dextrorphan/Levorphanol Not Detected [facility] Comment: Expected metabolism of Dextromethorphan and Dextrorphan/Levorphanol: Parent Drug Detected Metabolites Dextromethorphan: Dextrorphan Dextrorphan/Levorphanol: None Dextrophan cannot be distinguished from Levorphanol by the method used for analysis. 03/28/2025 3:05 PM EDT 03/28/2025 Narrative [facility] ([facility]BUL[facility]) - 04/02/2025 2:07 PM EDT Test(s) 341207-INYUANK BIOMARKERS IA; 989081-JOPPPMCRDY IA; 025692- GABAPENTIN IA; 905545-MKJHFVKDMOATZ IA was developed and its performance characteristics determined by [facility]. It has not been cleared or approved by the Food and Drug Administration. 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
--- OUTSIDE RECORDS SUMMARY | 2025-05-26 19:29 | XMS_ITS | Clinical Summary ---
Author Organization Healthcare Address [address] [place] [address] Care Team Providers Care Director Of Research Center Name Role Phone Maxx Cuellar MD Primary Care Provider [phone] Family History Medical History Relation Name Comments Asthma Father COPD Father Arthritis Maternal Grandfather Diabetes Maternal Grandfather Arthritis Maternal Grandmother Cancer Mother Relation Name Status Comments Father Maternal Grandfather Maternal Grandmother Mother Social History Tobacco Use Types Packs/Day Years Used Date Smoking Tobacco: Never Alcohol Use Standard Drinks/Week Comments Yes 0 (1 standard drink = 0.6 oz pur e alcohol) Alcoholic Drinks/day: Alcohol Comments Unknown Sex and Gender Information Value Date Recorded Sex Assigned at Not on file Legal Sex Female 6:11 PM EDT Gender Identity Not on file Sexual Orientation Not on file Last Filed Vital Signs Vital Sign Reading Time Taken Comments Blood Pressure - - Pulse - - Temperature - - Respiratory Rate - - Oxygen Saturation - - Inhaled Oxygen Concentration - - Weight 121 kg (267 lb) 09/22/2016 1:35 PM EDT Height 162.6 cm (5' 4 ) 09/22/2016 1:35 PM EDT Body Mass Index 45.83 09/22/2016 1:35 PM EDT Plan of Treatment Not on file Care Teams Director Of Research Center Relationship Specialty Start Date End Date Maxx Cuellar MD [address] [place] [id number] PCP - General 11/15/20
--- OUTSIDE RECORDS SUMMARY | 2025-05-26 19:29 | XMS_ITS | Encounter Summary ---
[facility] [address] [place] [address] Care Team Providers Care [employer] Stitcher Name Role Phone Nancy Mendez Primary Care Provider [phone] Encounter Details Date Type Department Care Team (Latest Contact Info) Description 03/28/2025 Travel Social History Tobacco Use Types Packs/Day Years [...] Description 09/25/2025 2:00 PM EDT Office Visit [facility] [address] [address] Tierney Webster APRN [address] [id number] documented as of this encounter Visit Diagnoses Not on filedocumented in this encounter Care Teams [employer] Stitcher Relationship Specialty Start Date End Date Nancy Mendez PA [address] [facility] [place] [address] PCP - General Physician Diesel Service Technician 03/29/24 documented as of this encounter
[2025-05-26 19:34] LABS: Microscopic, Urine URINE MICROSCOPIC (MICROSCOPIC)
[2025-05-26 19:36] LABS: Bilirubin,Urine Negative (Negative); Color,Urine YELLOW (Yellow); Glucose,Urine (UA) 2+ (Negative); Ketones,Urine 1+ (Negative); Leukocyte Esterase,Urine 2+ (Negative); PH,Urine 6.0 (5.0-8.5); Protein,Urine 2+ (Negative); Specific Gravity, Urine 1.020 (1.005-1.030); Urobilinogen,Urine 1.0 EU/dl (0.2)
[2025-05-26 19:42] LABS: Bacteria,Urine 3+ /lpf; WBC,Urine TNTC #/hpf (0-3)
--- NOTE | 2025-05-26 19:53 | HMH.EDGENADL ---
Discharge Plan Disposition Patient Disposition: Home, Self-Care Condition: Good Prescriptions Prescriptions: New sulfamethoxazole-trimethoprim 800-160 mg tablet 1 tab PO BID 7 Days Qty: 14 0RF No Action Zyrtec 10 mg capsule 10 mg PO DAILY PRN insulin lispro protamin-lispro 100 unit/mL (75-25) insulin pen 5 unit SQ DAILY metformin 1,000 mg tablet 1,000 mg PO DAILY duloxetine 60 mg capsule,delayed release(DR/EC) 60 mg PO DAILY tizanidine 4 mg tablet 4 mg PO HS PRN benzonatate 200 mg capsule 200 mg PO TID PRN (Reason: cough) 7 Days Qty: 21 0RF ondansetron 8 mg tablet,disintegrating 8 mg PO Q8H PRN (Reason: nausea ) Qty: 30 0RF sodium,potassium,mag sulfates [Suprep Bowel Prep Kit] 17.5-3.13-1.6 gram recon soln See Rx Instructions PO .COMPLEX Qty: 354 0RF Rx Instructions: DILUTE; drink full amount early evening before AND next morning at least 4-5 hr before procedure; follow w 960 mL water PO hydroxyzine HCl 50 mg tablet 50 mg PO Q8H PRN (Reason: nausea and vomiting) Qty: 30 0RF Referrals Follow up/Referrals: Provider,Referral, MD [Primary Care Provider, Medical] - See instructions Activity Restrictions/Add. Instructions Additional Instructions/Restrictions: Please take Bactrim twice daily for the next 7 days. If you develop low urinary output, fevers, or any other new or worsening symptoms please return. Clinical Impressions Clinical Impression: Pyelonephritis Print Language Print Language: Malian Discharge ED Provider: Chris Joiner General Adult HPI General Chief complaint: Nausea/Vomiting/Diarrhea Stated complaint: left side abdominal pain and back pain Time Seen by Provider: 05/26/25 19:17 Mode of Arrival: Ambulatory Source of Information: Patient Description of Symptoms (Recalled from ER Triage Doc. by RN): Patient states on wednesday she began having urinary pain and frequency, states on wednesday she believes passed a stone. States she had kindey stones before and the pain is similar. states today after she passed the stone she began having nausea and vomitting. Rates current pain a 5/10, and more of a bladder spasm History of Present Illness HPI narrative: Is a 49-year-old female patient, with past medical history of hypertension diabetes as well as recurrent urinary stones, who is presenting to the emergency department today for evaluation of left flank pain. Patient states this pain began initially on evening. She describes that since the pain has been rony she has had urinary frequency, dysuria, as well as development of suprapubic pain in addition to her left flank pain. She has had no fevers or chills. She states this does feel similar to prior stones that she has had in the past however the pain is more intermittent than her prior stones have been. She has had nausea but no vomiting or diarrhea Related Data Home Medications ?Medication ?Instructions ?Recorded ?Confirmed cetirizine 10 mg capsule (Zyrtec) 10 mg PO DAILY PRN 06/03/21 06/03/21 duloxetine 60 mg capsule,delayed 60 mg PO DAILY 06/03/21 06/03/21 release insulin lispro protamine-lispro 5 unit SQ DAILY 06/03/21 06/03/21 100 unit/mL (75-25) subcutaneous pen metformin 1,000 mg tablet 1,000 mg PO DAILY 06/03/21 06/03/21 tizanidine 4 mg tablet 4 mg PO HS PRN 06/03/21 06/03/21 Previous Rx's ?Medication ?Instructions ?Recorded benzonatate 200 mg capsule 200 mg PO TID PRN cough 7 days #21 06/03/21 caps ondansetron 8 mg disintegrating 8 mg PO Q8H PRN nausea #30 tabs 06/03/21 tablet hydroxyzine HCl 50 mg tablet 50 mg PO Q8H PRN nausea and 12/10/22 vomiting #30 tabs sodium,potassium,mag sulfates 17.5 See Rx Instructions PO .COMPLEX 09/20/24 gram-3.13 gram-1.6 gram oral soln #354 mL (Suprep Bowel Prep Kit) sulfamethoxazole 800 1 tab PO BID 7 days #14 tabs 05/26/25 mg-trimethoprim 160 mg tablet Allergies Allergy/AdvReac Type Severity Reaction Status Date / Time latex (LATEX) Allergy Unknown Verified 06/03/21 18:35 [facility] Disclaimer: The information contained in this section may have been updated after the patient was seen, as this information can be updated by other users. Social History Smoking Status: Never smoker alcohol intake: never current occupational status: employed Travel in the last 8 weeks?: None Have you lived/traveled outside US in past 30 days?: No Contact w/someone who lives/traveled outside US past 30 days?: No Exposure to someone with infectious disease in past 14 days?: No Do you have a fever (greater than 100.4 F or 38 C)?: No Have you tested positive for COVID-19?: No Exposed to someone with COVID-19 in past 14 days?: No Do you have a sore throat?: No Do you have a cough?: No Do you have any weakness?: No Do you have any diarrhea?: No Are you experiencing any unusual bleeding?: No Do you have any muscle aches/pain?: No Do you have any abdominal pain?: No Are you experiencing loss of taste or smell?: No Other Medical History Have you received the Flu Vaccine for this season: Yes Have you received the Pneumonia Vaccine: No Medical Decision Making Medical Records Screening: Per USPSTF and CDC recommendations, given the prevalence of disease in our region, it is our hospital?s policy to screen for HIV and viral Hepatitis for all patients aged 18 and over and those with ongoing risk factors. Vital Signs: 05/26/25 19:24 05/26/25 19:32 Temperature 97.7 F 97.7 F Temperature Source Oral Pulse Rate 71 Pulse Rate [Left] 99 H Respiratory Rate 18 18 Blood Pressure 157/78 H Blood Pressure [Right Arm] 177/78 H Blood Pressure Mean [Right Arm] 111 02 Sat by Pulse Oximetry 95 97 Oxygen Delivery Method Room Air Room Air Lab Data Lab Results 05/26/25 19:20: Urine Color Yellow, Urine Appearance Clear, Urine pH 6.0, Ur Specific [place] 1.020, Urine Protein 2+ A, Urine Glucose (UA) 2+, Urine Ketones 1+, Urine Blood 3+ A, Urine Nitrate Positive A, Urine Bilirubin Negative, Urine Urobilinogen 1.0, Ur Leukocyte Esterase 2+ A, Urine RBC 10-20, Urine WBC Tntc, Ur Squamous Epith Cells None, Urine Bacteria 3+ 05/26/25 19:55: WBC 14.0 H, RBC 5.24, Hgb 14.9, Hct 43.6, MCV 83.2, MCH 28.4, MCHC 34.2, RDW 13.2, Plt Count 242, MPV 9.9, Neut % (Auto) 74.2, Lymph % (Auto) 16.8, [place] % (Auto) 6.4, Eos % (Auto) 2.0, Baso % (Auto) 0.3, Neut # (Auto) 10.4 H, Lymph # (Auto) 2.4, [place] # (Auto) 0.9, Eos # (Auto) 0.3, Baso # (Auto) 0.0, Sodium 132 L, Potassium 4.2, Chloride 97 L, Carbon Dioxide 29, Anion Gap 10.2, BUN 10, Creatinine 0.70, Estimated Creat Clear 86, Estimated GFR 88, Est GFR ( Amer) 107, Glucose 256 H, Calcium 9.7, Total Bilirubin 0.6, AST 28, ALT 28, Alkaline Phosphatase 98, Total Protein 8.0, Albumin 4.6, Globulin 3.4 H, Albumin/Globulin Ratio 1.4, Lipase 191, Serum HCG, Qual Negative 05/26/25 19:55 05/26/25 19:55 Orders (Tests/Meds): ED MEDICATIONS Generic Name Dose Route Start Last Admin Trade Name Freq PRN Reason Stop Dose Admin Ceftriaxone Sodium 2 gm/ 100 mls @ 200 mls/hr 05/26/25 21:00 05/26/25 21:05 Sodium Chloride IV 05/26/25 21:29 200 mls/hr ONCE ONE Administration Discontinued Medications Generic Name Dose Route Start Last Admin Trade Name Freq PRN Reason Stop Dose Admin Iopamidol 75 ml 05/26/25 20:25 05/26/25 20:26 Iopamidol-370 (76%);100ml Bottle IV 05/26/25 20:26 75 ml ONCE ONE Administration Sodium Chloride 10 ml 05/26/25 20:25 05/26/25 20:26 Sodium Chloride 0.9% 10ml Syr (Rad Only) IV 05/26/25 20:26 10 ml ONCE ONE Administration ORDERS Category Date Time Status CT abdomen pelvis w con Stat Cat Scan 05/26/25 19:29 Completed CBC w/Auto Diff [Complete Blood Count Auto Diff] Stat Lab 05/26/25 19:55 Completed CMP [Comprehensive Metabolic Panel] Stat Lab 05/26/25 19:55 Completed HCG Qualitative, Serum Stat Lab 05/26/25 19:55 Completed Lipase Stat Lab 05/26/25 19:55 Completed UA [Urinalysis and Microscopic] Stat Lab 05/26/25 19:20 Completed Urine Culture Stat Micro 05/26/25 19:20 Received
[2025-05-26 20:06] LABS: Hematocrit 43.6 % (37.0-47.0); Hemoglobin 14.9 g/dL (12.2-16.2); Immature Granulocytes % 0.3 %; Mean Corpuscular HGB Conc 34.2 g/dL (31.8-35.4); Mean Corpuscular Hemoglobin 28.4 pg (27.0-31.2); Mean Corpuscular Volume 83.2 fl (81-99); Nucleated Red Blood Cells % 0 %; Platelet Count 242 K/mm3 (142-424); Red Blood Count 5.24 M/mm3 (4.20-5.40); Red Cell Distribution Width-SD 39.5 fL; White Blood Count 14.0 K/mm3 (4.8-10.8)
[2025-05-26 20:12] LABS: Anion Gap 10.2 mEq/L (5-15); Blood Urea Nitrogen 10 mg/dl (7-17); Carbon Dioxide 29 mmol/L (22.0-30.0); Chloride 97 mmol/L (98-107); Creatinine Clearance Estimated 86 mL/min (50-200); Creatinine,Serum 0.70 mg/dl (0.52-1.04); Estimated Glomerular Filt Rate 88 ml/min (>60); GFR (African American) 107 ML/MIN (>60); Potassium 4.2 mmoL/L (3.5-5.1); Sodium 132 mmol/L (136-145)
[2025-05-26 20:13] LABS: Alanine Aminotransferase 28 U/L (12-78); Albumin Level 4.6 g/dl (3.5-5.0); Albumin/Globulin Ratio 1.4 (1.1-1.8); Alkaline Phosphatase 98 U/L (38-126); Aspartate Amino Transferase 28 U/L (14-36); Bilirubin,Total 0.6 mg/dl (0.2-1.3); Calcium 9.7 mg/dl (8.4-10.2); Globulin 3.4 g/dL (1.3-3.2); Glucose 256 mg/dl (74-100); Lipase 191 U/L (23-300); Total Protein,Serum 8.0 g/dl (6.3-8.2)
[2025-05-26 20:18] LABS: HCG Qualitative, Serum Negative (Negative)
[2025-05-26] MEDS: IOPAMIDOL-370 (76%);100ML BOTTLE 75 ML IV (20:26)
[2025-05-26] MEDS: SODIUM CHLORIDE 0.9% 10ML SYR (RAD ONLY) 10 ML IV (20:26)
--- NOTE | 2025-05-26 21:18 | HMH.EDGENADL ---
Discharge Plan Disposition Patient Disposition: Home, Self-Care Condition: Good Prescriptions Prescriptions: New sulfamethoxazole-trimethoprim 800-160 mg tablet 1 tab PO BID 7 Days Qty: 14 0RF No Action Zyrtec 10 mg capsule 10 mg PO DAILY PRN insulin lispro protamin-lispro 100 unit/mL (75-25) insulin pen 5 unit SQ DAILY metformin 1,000 mg tablet 1,000 mg PO DAILY duloxetine 60 mg capsule,delayed release(DR/EC) 60 mg PO DAILY tizanidine 4 mg tablet 4 mg PO HS PRN benzonatate 200 mg capsule 200 mg PO TID PRN (Reason: cough) 7 Days Qty: 21 0RF ondansetron 8 mg tablet,disintegrating 8 mg PO Q8H PRN (Reason: nausea ) Qty: 30 0RF sodium,potassium,mag sulfates [Suprep Bowel Prep Kit] 17.5-3.13-1.6 gram recon soln See Rx Instructions PO .COMPLEX Qty: 354 0RF Rx Instructions: DILUTE; drink full amount early evening before AND next morning at least 4-5 hr before procedure; follow w 960 mL water PO hydroxyzine HCl 50 mg tablet 50 mg PO Q8H PRN (Reason: nausea and vomiting) Qty: 30 0RF Referrals Follow up/Referrals: Provider,Referral, MD [Primary Care Provider, Medical] - See instructions Activity Restrictions/Add. Instructions Additional Instructions/Restrictions: Please take Bactrim twice daily for the next 7 days. If you develop low urinary output, fevers, or any other new or worsening symptoms please return. Clinical Impressions Clinical Impression: Pyelonephritis Print Language Print Language: Burundian Discharge ED Provider: Chris Joiner General Adult HPI General Chief complaint: Nausea/Vomiting/Diarrhea Stated complaint: left side abdominal pain and back pain Time Seen by Provider: 05/26/25 19:17 Mode of Arrival: Ambulatory Source of Information: Patient Description of Symptoms (Recalled from ER Triage Doc. by RN): Patient states on wednesday she began having urinary pain and frequency, states on wednesday she believes passed a stone. States she had kindey stones before and the pain is similar. states today after she passed the stone she began having nausea and vomitting. Rates current pain a 5/10, and more of a bladder spasm History of Present Illness HPI narrative: This is a 49-year-old female patient, with past medical history of hypertension and diabetes as well as frequent urinary stones, who is presenting to the emergency department today for evaluation of left-sided flank pain and suprapubic pain. Patient states his pain began on and has been intermittent since that time. She states that the intermittent nature of her pain is not quite consistent with prior urinary stones but the severity of her pain is. She has not had any kevin hematuria. She is not having vomiting but she is experiencing nausea. No hematochezia, melena, or hematemesis. She is not experiencing the pain in her upper quadrants. No vaginal discharge. No fevers Related Data Home Medications ?Medication ?Instructions ?Recorded ?Confirmed cetirizine 10 mg capsule (Zyrtec) 10 mg PO DAILY PRN 06/03/21 06/03/21 duloxetine 60 mg capsule,delayed 60 mg PO DAILY 06/03/21 06/03/21 release insulin lispro protamine-lispro 5 unit SQ DAILY 06/03/21 06/03/21 100 unit/mL (75-25) subcutaneous pen metformin 1,000 mg tablet 1,000 mg PO DAILY 06/03/21 06/03/21 tizanidine 4 mg tablet 4 mg PO HS PRN 06/03/21 06/03/21 Previous Rx's ?Medication ?Instructions ?Recorded benzonatate 200 mg capsule 200 mg PO TID PRN cough 7 days #21 06/03/21 caps ondansetron 8 mg disintegrating 8 mg PO Q8H PRN nausea #30 tabs 06/03/21 tablet hydroxyzine HCl 50 mg tablet 50 mg PO Q8H PRN nausea and 12/10/22 vomiting #30 tabs sodium,potassium,mag sulfates 17.5 See Rx Instructions PO .COMPLEX 09/20/24 gram-3.13 gram-1.6 gram oral soln #354 mL (Suprep Bowel Prep Kit) sulfamethoxazole 800 1 tab PO BID 7 days #14 tabs 05/26/25 mg-trimethoprim 160 mg tablet Allergies Allergy/AdvReac Type Severity Reaction Status Date / Time latex (LATEX) Allergy Unknown Verified 06/03/21 18:35 [facility] Disclaimer: The information contained in this section may have been updated after the patient was seen, as this information can be updated by other users. Social History Smoking Status: Never smoker alcohol intake: never current occupational status: employed Travel in the last 8 weeks?: None Have you lived/traveled outside US in past 30 days?: No Contact w/someone who lives/traveled outside US past 30 days?: No Exposure to someone with infectious disease in past 14 days?: No Do you have a fever (greater than 100.4 F or 38 C)?: No Have you tested positive for COVID-19?: No Exposed to someone with COVID-19 in past 14 days?: No Do you have a sore throat?: No Do you have a cough?: No Do you have any weakness?: No Do you have any diarrhea?: No Are you experiencing any unusual bleeding?: No Do you have any muscle aches/pain?: No Do you have any abdominal pain?: No Are you experiencing loss of taste or smell?: No Other Medical History Have you received the Flu Vaccine for this season: Yes Have you received the Pneumonia Vaccine: No ROS Obtained: Yes Systems reviewed as appropriate & no additional complaints except as documented Physical Exam General General appearance: other (See MDM) Respiratory Respiratory exam: Present other (See MDM) Cardiovascular Cardiovascular exam: Present other (See MDM) Neurological Exam Neurological exam: Present other (See MDM) Medical Decision Making Medical Records Medical records reviewed: Yes I reviewed the patient's medical records. Screening: Per USPSTF and CDC recommendations, given the prevalence of disease in our region, it is our hospital?s policy to screen for HIV and viral Hepatitis for all patients aged 18 and over and those with ongoing risk factors. Reuben Inquiry Pt receiving controlled substance: No Reuben was queried for this patient: No Vital Signs: 05/26/25 19:24 05/26/25 19:31 05/26/25 19:32 Temperature 97.7 F 97.7 F Temperature Source Oral Pulse Rate 97 H 71 Pulse Rate [Left] 99 H Respiratory Rate 18 18 Blood Pressure 177/99 H 157/78 H Blood Pressure [Right Arm] 177/78 H Blood Pressure Mean 125 Blood Pressure Mean [Right Arm] 111 02 Sat by Pulse Oximetry 95 96 97 Oxygen Delivery Method Room Air Room Air 05/26/25 19:46 05/26/25 20:16 05/26/25 20:31 Temperature Temperature Source Pulse Rate 93 H 89 94 H Pulse Rate [Left] Respiratory Rate Blood Pressure 161/75 H 161/80 H 187/92 H Blood Pressure [Right Arm] Blood Pressure Mean 113 107 100 Blood Pressure Mean [Right Arm] 02 Sat by Pulse Oximetry 95 96 99 Oxygen Delivery Method 05/26/25 20:46 05/26/25 21:02 05/26/25 21:16 Temperature Temperature Source Pulse Rate 92 H 89 91 H Pulse Rate [Left] Respiratory Rate Blood Pressure 173/83 H 152/78 H 151/55 H Blood Pressure [Right Arm] Blood Pressure Mean 92 102 87 Blood Pressure Mean [Right Arm] 02 Sat by Pulse Oximetry 96 97 95 Oxygen Delivery Method 05/26/25 21:56 Temperature 98.2 F Temperature Source Pulse Rate 87 Pulse Rate [Left] Respiratory Rate 20 Blood Pressure 140/74 Blood Pressure [Right Arm] Blood Pressure Mean Blood Pressure Mean [Right Arm] 02 Sat by Pulse Oximetry Oxygen Delivery Method Room Air Lab Data Lab Results 05/26/25 19:20: Urine Color Yellow, Urine Appearance Clear, Urine pH 6.0, Ur Specific [place] 1.020, Urine Protein 2+ A, Urine Glucose (UA) 2+, Urine Ketones 1+, Urine Blood 3+ A, Urine Nitrate Positive A, Urine Bilirubin Negative, Urine Urobilinogen 1.0, Ur Leukocyte Esterase 2+ A, Urine RBC 10-20, Urine WBC Tntc, Ur Squamous Epith Cells None, Urine Bacteria 3+ 05/26/25 19:55: WBC 14.0 H, RBC 5.24, Hgb 14.9, Hct 43.6, MCV 83.2, MCH 28.4, MCHC 34.2, RDW 13.2, Plt Count 242, MPV 9.9, Neut % (Auto) 74.2, Lymph % (Auto) 16.8, [place] % (Auto) 6.4, Eos % (Auto) 2.0, Baso % (Auto) 0.3, Neut # (Auto) 10.4 H, Lymph # (Auto) 2.4, [place] # (Auto) 0.9, Eos # (Auto) 0.3, Baso # (Auto) 0.0, Sodium 132 L, Potassium 4.2, Chloride 97 L, Carbon Dioxide 29, Anion Gap 10.2, BUN 10, Creatinine 0.70, Estimated Creat Clear 86, Estimated GFR 88, Est GFR ( Amer) 107, Glucose 256 H, Calcium 9.7, Total Bilirubin 0.6, AST 28, ALT 28, Alkaline Phosphatase 98, Total Protein 8.0, Albumin 4.6, Globulin 3.4 H, Albumin/Globulin Ratio 1.4, Lipase 191, Serum HCG, Qual Negative 05/26/25 19:55 05/26/25 19:55 Orders (Tests/Meds): ED MEDICATIONS Discontinued Medications Generic Name Dose Route Start Last Admin Trade Name Belle PRN Reason Stop Dose Admin Ceftriaxone Sodium 2 gm/ 100 mls @ 200 mls/hr 05/26/25 21:00 05/26/25 21:49 Sodium Chloride IV 05/26/25 21:29 Infused ONCE ONE Infusion Iopamidol 75 ml 05/26/25 20:25 05/26/25 20:26 Iopamidol-370 (76%);100ml Bottle IV 05/26/25 20:26 75 ml ONCE ONE Administration Ketorolac Tromethamine 15 mg 05/26/25 21:20 05/26/25 21:22 Ketorolac 15mg/Ml Vial IV 05/26/25 21:21 15 mg ONCE ONE Administration Ondansetron HCl 4 mg 05/26/25 21:20 05/26/25 21:22 Ondansetron 4mg/2ml Vial IV 05/26/25 21:21 4 mg ONCE ONE Administration Sodium Chloride 10 ml 05/26/25 20:25 05/26/25 20:26 Sodium Chloride 0.9% 10ml Syr (Rad Only) IV 05/26/25 20:26 10 ml ONCE ONE Administration ORDERS Category Date Time Status CT abdomen pelvis w con Stat Cat Scan 05/26/25 19:29 Completed CBC w/Auto Diff [Complete Blood Count Auto Diff] Stat Lab 05/26/25 19:55 Completed CMP [Comprehensive Metabolic Panel] Stat Lab 05/26/25 19:55 Completed HCG Qualitative, Serum Stat Lab 05/26/25 19:55 Completed Lipase Stat Lab 05/26/25 19:55 Completed UA [Urinalysis and Microscopic] Stat Lab 05/26/25 19:20 Completed Urine Culture Stat Micro 05/26/25 19:20 Received Medical Decision Narrative: In summary, this is a 49-year-old female patient who is presenting to the emergency department today for evaluation of left flank pain, suprapubic pain, dysuria, and urinary frequency for the last 3 days. The patient's comorbidities include a history of recurrent urinary stones, hypertension, and diabetes. On initial evaluation of the patient they were resting comfortably in no acute distress and nontoxic in appearance. They are hemodynamically stable, saturating well room air, and are neurologically intact. On physical examination her heart lungs are clear to auscultation bilaterally. She does have suprapubic abdominal tenderness as well as left CVA tenderness to palpation. Differential diagnosis includes pyelonephritis, cystitis, ureteral stone, diverticulitis, among others Workup was initiated with hematologic labs as well as a CT scan of the abdomen and pelvis with IV contrast. Labs were personally turbid by me and demonstrated leukocytosis of 14. No significant electrolyte derangements or acute kidney injury. Patient does have 3+ blood, nitrates, leukocyte esterase, and too numerous to count white cells. This is consistent with urinary tract infection. CT scan notes that there is no acute findings and no nephrolithiasis or acute obstructive uropathy. They do note circumferential distal esophageal wall thickening which could be related to mild esophagitis, however the patient does not report any symptoms of be compatible with this. I do feel this patient's presentation is most consistent with pyelonephritis given that she does have a leukocytosis, urinary symptoms, and has left flank pain and tenderness to percussion I have treated the patient the emergency department with 15 mg Toradol, 4 mg of Zofran, and 2 g of Rocephin IV. We will start the patient on a 7-day course of Bactrim for urinary tract infection. She understands that she should return to the emergency department if she begins developing fevers, decreased urinary output, or any other new or worsening symptoms. At this time all questions were answered and all parties were agreeable with the decision to discharge. Critical Care Critical Care Time Critical Care Time: No
[2025-05-26] MEDS: KETOROLAC 15MG/ML VIAL 15 MG IV (21:22)
[2025-05-26] MEDS: ONDANSETRON 4MG/2ML VIAL 4 MG IV (21:22)
--- NOTE | 2025-05-29 11:55 | PC.NURSE ---
Prelim urine culture results discussed with . No change needed to treatment plan.
== END 2025-05-26 22:00 | disposition home or self-care (01) ==
PROVIDERS: Emergency Provider Student in an Organized Health Care Education/Training Program
DX: N10 Acute pyelonephritis (principal); R10.A2 Flank pain, left side; R10.24 Suprapubic pain; B96.20 Unspecified Escherichia coli [E. coli] as the cause of diseases classified elsewhere
CPT/HCPCS: 74177; 80053; 81001; 83690; 84703; 85025; 87086; 87088; 87186; 96365; 96375; 99285; J0696; J1885; J2405; Q9967

== ENCOUNTER 2025-06-07 10:43 | Outpatient (CLI) | payer OTHER, SELFPAY ==
--- OUTSIDE RECORDS SUMMARY | 2025-06-10 10:47 | XMS_ITS | Encounter Summary ---
[facility] Address [address] [place] [address] Care Team Providers Care Wood Model Builder Name Role Phone Nancy Mendez Primary Care Provider [phone] Encounter Details Date Type Department Care Team (Late st Contact Info) Description 04/02/2025 Results Follow-Up [facility] RHEUMATOLOG[facility] [address] [address] Tierney Webster APRN [address] [address] Social History Tobacco Use Types Packs/Day Years [...] Description 09/25/2025 2:00 PM EDT Office Visit [facility] 330 [facility] [address] [place] [address] Tierney Webster APRN [address] [id number] documented as of this encounter Visit Diagnoses Not on filedocumented in this encounter Care Teams Wood Model Builder Relationship Specialty Start Date End Date Nancy Mendez PA [address] [place] [address] PCP - General Physician Cna Instructor 03/29/24 documented as of this encounter
--- OUTSIDE RECORDS SUMMARY | 2025-06-10 10:47 | XMS_ITS | Clinical Summary ---
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 [...] Plan (03/26/2025 12:21 PM EDT): [facility] -- Marily [place] Prior Humira per Dermatology [...] Plan (04/06/2024 12:21 PM EDT): [facility] -- Marily [place] Prior Humira per Dermatology [...] Department Care Team Description 04/02/2025 Results Follow-Up [facility] RHEUM[facility]OLOGY [address] [address] Whit Webster APRN 03/28/2025 2:15 PM EDT Office Visit [facility] RHEUM[facility] [address] [place] [phone] Whit Webster APRN Fibromyalgia (Primary Dx); [...] 2:00 PM EDT Office Visit [facility] RHEUM[facility] [address] [place] [phone] Tierney Webster APRN [address] [address] Health Maintenance Due Date Last [...] 2:07 PM EDT Performed at: 01 - [facility] [address] [place] [address] [id number] Community Services Coordinator: Polly Connell [facility], Phone: [phone] Patient Fasting: N us Tierney Webster STAFF TECHNOLOGIST URINE ORDERABLES Final Result [facility] (AMBULATORY) [address] [place] [address], [facility] [address] [place] [address], * [facility] Flex 22, Urine - (03/28/2025 [...] 03/28/2025 3:05 PM EDT 03/28/2025 Narrative [facility] (AMBULATORY) - 04/02/2025 2:07 PM EDT Test(s) [id number] BIOMARKERS [place]; [id number]-[id number] [place]; [id number]- GABAPENTIN [place]; [id number] IA was developed and its performance characteristics determined by [facility]. It has not been cleared or approved by the Food and Drug Administration. Performed at: 01 - [facility] [address] [place] [id number] Community Services Coordinator: Polly Connell [facility], Phone: [phone] Patient Fasting: N Tierney Webster APRN URINE ORDERABLES Final Result [facility] (AMBULATORY) [address] [place] [address], [facility] [address] [place] [address], [place] [phone] * Hepatitis Panel, Acute (03/21/2024 9:06 AM EDT) Blood Historical Provider LAB BLOOD ORDERABLES Caroline l Result from Last 3 Months or Most Recently Relevant to Health Maintenance Insurance Care Teams Admissions Coordinator Relationship Specialty Start Date End Date Nancy Mendez PA [address] [place] [address] PCP - General Physician Surgical Clinical Reviewer 03/29/24
--- OUTSIDE RECORDS SUMMARY | 2025-06-10 10:47 | XMS_ITS | Clinical Summary ---
Author Organization Healthcare Address [address] [place] [address] Care Team Providers Care Hydrotechnical Specialist Name Role Phone Maxx Cuellar MD Primary Care Provider [phone] Family History Medical History Relation Name Comments [...] of Treatment Not on file Care Teams Hydrotechnical Specialist Relationship Specialty Start Date End Date Maxx Cuellar MD [address] [place] [id number] PCP - General 11/15/20
== END 2025-06-07 23:59 | disposition home or self-care (01) ==
LOC: LAB.DROPOF 06-10 10:43
PROVIDERS: Visit Provider Student in an Organized Health Care Education/Training Program
DX: N39.0 Urinary tract infection, site not specified (principal)
CPT/HCPCS: 87086

== ENCOUNTER 2025-06-14 15:48 | Outpatient (CLI) | payer OTHER, SELFPAY | END 2025-06-14 23:59 | disposition home or self-care (01) | LOC: LAB.DROPOF 06-15 13:45 | PROVIDERS: Visit Provider Nurse Practitioner | DX: R35.0 Frequency of micturition (principal) | CPT/HCPCS: 87086; 87088; 87186 ==